=== PATIENT | female | born 1950 | race Two or more races ===

== ENCOUNTER → 2023-07-12 | Emergency (ER) | payer OTHER ==
[~2023-07-12] VITALS: Ht 154.9 cm; Wt 57.6 kg
[~2023-07-12] MED LIST: CANDESARTAN CILE8 M1; CLONAZEPAM1 MG PO; PANTOPRAZOLE SO40 M2 PO; SINGULAIR10 MG PO
== END | disposition left against medical advice (07) ==
LOC: ER 12:58
DX: R05.9 Cough, unspecified (principal); Z88.8 Allergy status to other drugs, medicaments and biological substances; Z88.6 Allergy status to analgesic agent; Z91.013 Allergy to seafood